=== PATIENT | female | born 1970 | race Caucasian/White ===

== ENCOUNTER 2020-07-09 08:02 | Outpatient (CLI) | payer OTHER, SELFPAY ==
--- NOTE | 2020-07-09 08:35 | ECG_ITS ---
Measurements Intervals [place] Rate: 76 P: 37 RI: 143 QRS: 55 QRSD: 102 T: 16 QT: 354 QTc: 400 Interpretive Statements SINUS RHYTHM DELAYED PRECORDIAL R/S TRANSITION BORDERLINE T WAVE ABNORMALITY- INFERIOR LEADS BASELINE ARTIFACT- I, II, III, AVR, AVL, AVF BORDERLINE ECG Electronically Signed On 07-09-2020 8:59:21 CDT by Alvin Aden D.O.
[2020-07-09 08:56] LABS: Basophils Absolute Auto 0.1 K/mm3 (0.0-0.1); Basophils Percent Auto 0.6 % (0.2-1.2); Eosinophils Absolute Auto 0.2 K/mm3 (0-0.3); Eosinophils Percent Auto 2.5 % (0-4.4); Hematocrit 42.6 % (37.0-47.0); Hemoglobin 13.8 g/dL (12.0-15.0); Immature Granulocyte Absolute 0.02 K/mm3 (0.00-0.031); Immature Granulocyte Percent A 0.3 % (0-0.5); Lymphocytes Absolute Auto 2.43 K/mm3 (0.9-3.2); Lymphocytes Percent Auto 30.5 % (18.3-44.2); Mean Corpuscular HGB Conc 32.4 g/dl (32-36); Mean Corpuscular Hemoglobin 28.5 pg (26-34); Monocytes Absolute Auto 0.6 K/mm3 (0.1-0.6); Monocytes Percent Auto 7.3 % (2.6-8.5); Neutrophils Absolute Auto 4.7 K/mm3 (1.3-6.7); Neutrophils Percent Auto 58.8 % (45.5-73.1); Platelet Count Result 393 k/mm3 (150-375); Red Blood Count 4.84 M/mm3 (4.2-5.4); Red Cell Distribution Width 13.3 % (11.5-14.5)
[2020-07-09 09:08] LABS: Partial Thromboplastin Time 27.8 SECONDS (22.3-36.8)
[2020-07-09 09:11] LABS: Alanine Aminotransferase 20 U/L (4-35); Albumin Level 4.4 g/dL (3.5-5.1); Alkaline Phosphatase 102 U/L (38-126); Anion Gap 5 mmol/L (8-16); Aspartate Amino Transferase 24 U/L (14-36); Bilirubin,Total 0.3 mg/dL (0.2-1.3); Blood Urea Nitrogen 16 mg/dL (7-17); Calcium 8.9 mg/dL (8.4-10.2); Carbon Dioxide 30 mmol/L (22-30); Chloride 107 mmol/L (98-107); Estimated Glomerular Filt Rate > 60; Glucose 118 mg/dL (65-105); Potassium 3.8 mmol/L (3.4-5.0); Sodium 142 mmol/L (137-145)
[2020-07-09 09:23] LABS: INR 0.9; Prothrombin Time 13.2 Seconds (11.1-14.7)
== END 2020-07-09 08:03 | disposition home or self-care (01) ==
LOC: ANHSURGERY 08:04
PROVIDERS: PCP Family Medicine; Visit Provider Urology
DX: Z01.818 Encounter for other preprocedural examination (principal); N39.3 Stress incontinence (female) (male); N81.9 Female genital prolapse, unspecified
CPT/HCPCS: 36415; 80053; 85025; 85610; 85730; 86850; 86900; 86901; 87086; 87088; 93005

== ENCOUNTER → 2020-07-18 00:53 | Outpatient (CLI) | payer OTHER, SELFPAY ==
[2020-07-18 19:49] LABS: SARS-CoV-2 RNA PCR Negative
== END ==
PROVIDERS: PCP Nurse Practitioner Family; Visit Provider Urology
DX: Z01.812 Encounter for preprocedural laboratory examination (principal); Z20.822 Contact with and (suspected) exposure to COVID-19
CPT/HCPCS: C9803; U0003; U0005

== ENCOUNTER 2020-07-21 01:52 | Day surgery (SDC) | payer OTHER, SELFPAY ==
[2020-07-09 07:50] VITALS: BP 120/62; PULSE 82; RESP 18; TEMP 36.8; O2SAT 99
[2020-07-09 08:15] VITALS: BMI 34.6
--- NOTE | 2020-07-12 11:43 | PM.IMHP ---
H&P: HPI History of Present Illness Date/Time: 07/12/20 11:43 a 49-year-old with post hysterectomy vaginal vault prolapse as well as stress incontinence which she states has improved as the prolapse has worsened. She has had a stress incontinence procedure in the past. Chief Complaint: pelvic organ prolapse, stress incontinence Review of Systems Review of Systems: All systems reviewed & are unremarkable except as noted in HPI and below PMFSH Past Medical History Medical History Headache, migraine, intractable Irritable bowel syndrome with diarrhea Ulcerative colitis (~2009) Surgical History Surgical History H/O: hysterectomy (~03/2018) History of bladder suspension procedure (~03/2018) History of foot surgery 2012 Family History Family History Mother Hypertension Family history of elevated blood lipids Other H/O: hysterectomy Social History Social History Smoking status: Never smoker Second hand tobacco smoke exposure: No Alcohol intake: current Substance use: never Substance use type: does not use Gender identity (if verbalized by the patient): Female Spiritual care concerns: No Meds Home Medications and Allergies Home Medications Medication Instructions Recorded Confirmed Type famotidine 20 mg PO .at bedtime PRN 07/09/20 07/09/20 History Allergies Allergy/AdvReac Type Severity Reaction Status Date / Time Sulfa (Sulfonamide Allergy Mild Rash Verified 07/09/20 08:12 Antibiotics) Exam Const: General: cooperative HENMT: Head: normal to inspection Eyes: General: appearance normal, both eyes and all related structures Resp: Effort & Inspection: normal respiratory effort and able to speak in complete sentences GI: Inspection: normal to inspection : Bimanual Exam- Adnexa, other: cystocele ( Plus three) and No apex supported ( +1) Back/Spine/Pelvis: Back: no CVA tenderness Skin: General skin exam: normal color Neuro: General: patient oriented x3 Assessment and Plan Assessment and plan (1) Prolapse of vaginal vault after hysterectomy: Code(s): N99.3 - Prolapse of vaginal vault after hysterectomy Status: Acute Assessment and Plan: robotic sacral colpopexy (2) ZACH (stress urinary incontinence, female): Code(s): N39.3 - Stress incontinence (female) (male) Status: Acute Assessment and Plan: urethral sling
[2020-07-21] VITALS (11 sets, daily range): BP systolic 114–135; BP diastolic 49–75; PULSE 58–115; RESP 12–20; TEMP 36.4–36.8; O2SAT 96–100
--- NOTE | 2020-07-21 07:17 | WPDHPUPDATE1 ---
History and Physical Update Update Date/Time: 07/21/20 07:17 History and Physical has been reviewed, including an updated exam of the patient. There are NO changes in the patient's condition. Risks, benefits, and alternatives have been discussed and questions answered. Patient agrees to proceed with procedure.
[2020-07-21] MEDS: LACTATED RINGERS 1,000 ML 30 ML IV CONT ×2 (09:50→14:17)
--- NOTE | 2020-07-21 09:59 | WPDANESEPPF ---
Anes - Initial Pre Proc Eval Procedure: Operation Date: 07/21/20 11:15 Proposed Procedures p Robotic Sacrocolpopexy - Radu Gallegos MD s Urethral Sling - Radu Gallegos MD Date/Time: 07/21/20 09:59 Surgeon: Radu Gallegos MD Pre Op Diagnosis: Stress Incontinence,Vaginal Vault Prolapse Patient Data Age: 49 Gender: F Height: 5 ft 6 in Weight: 97.3 kg Last Vital Signs Temp 36.4 C 07/21/20 09:41 Pulse 79 07/21/20 09:41 Resp 20 07/21/20 09:41 BP 127/68 07/21/20 09:41 Pulse Ox 100 07/21/20 09:41 Allergies Allergy/AdvReac Type Severity Reaction Status Date / Time Sulfa (Sulfonamide Allergy Mild Rash Verified 07/09/20 08:12 Antibiotics) Home Medications Medication Instructions Recorded Confirmed Type famotidine 20 mg PO .at bedtime PRN 07/09/20 07/21/20 History Patient hx anesthesia problems: none Family hx anesthesia problems: none PMFSH Past Medical History Medical History (Updated 07/21/20 @ 09:59 by Donn Cruz MD) Headache, migraine, intractable Irritable bowel syndrome with diarrhea Obesity Ulcerative colitis (~2009) Surgical History Surgical History H/O: hysterectomy (~03/2018) History of bladder suspension procedure (~03/2018) History of foot surgery 2012 Family History Family History Mother Hypertension Family history of elevated blood lipids Other H/O: hysterectomy Social History Social History Smoking status: Never smoker Second hand tobacco smoke exposure: No Alcohol intake: current Alcohol use details: STATES DRINKS VERY RARELY, 2/MONTH IF THAT Substance use: never Substance use type: does not use Living arrangements: with family Gender identity (if verbalized by the patient): Female Spiritual care concerns: No Anes - Eval Final PreProcedure Day of Procedure 07/21/20 09:59 Patient weight: obese Heart: regular rate and rhythm Lungs: clear to auscultation Airway: Mallampati scale class II Neurological: alert and oriented Last oral intake: >/= 8 hours ASA classification: II Anesthetic plan: proceed Anesthesia type and monitoring: general ETT and standard monitoring Informed Consent: The patient's anesthetic plan and its attendant risks and benefits were discussed with the patient/family/POA. Questions were solicited and answers provided to the satisfaction of the patient/family/POA.
[2020-07-21] MEDS: ceFAZolin 2 GM/D5W 50 ML 2 GM/50 ML BAG IVPB (11:43)
[2020-07-21] MEDS: BUPIVACAINE/EPINEPHRINE 0.25% 50 ML VIAL INFILTRATE (12:44)
--- NOTE | 2020-07-21 14:19 | PM.PROC ---
Procedure Note - Detailed Date of procedure: 07/21/20 Pre-op diagnosis: Stress Incontinence,Vaginal Vault Prolapse Vaginal vault prolapse Female perineal laxity Stress urinary incontinence Post-op diagnosis: same Procedure performed: Robotic assisted laparoscopic sacral colpopexy Perineoplasty Mid urethral sling Cystoscopy Description of procedure: She understood the risks of bleeding, infection, damage to surrounding organs, bowel injury, bowel obstruction, recurrence of prolapse, persistent or recurrent stress incontinence, mesh related complications including exposure and extrusion, diskitis, postoperative voiding dysfunction including incontinence and retention, hip and leg pain, dyspareunia, and she agrees to proceed. She was correctly identified and informed consent was obtained. She was brought to the operating room. She was given general anesthesia. She was placed in the dorsal lithotomy position. All pressure points were padded. She was given appropriate perioperative antibiotics. Time-out performed. I anesthetized the skin 3 fingerbreadths cephalad to the umbilicus. I incised the skin. I dissected down to locate the fascia. I grasped the fascia with Barbara clamps. I entered the fascia sharply. I placed Vicryl sutures for later fascial closure. I placed a midline trocar. Under direct vision 2 additional trocars were placed on the right and left upper quadrant. She was placed in steep Trendelenburg and the robot was docked. I then sat at the console. With the Sizer in the vagina I created a plane on the anterior and posterior vaginal wall. This was done for several cm taking great care not to injure the vagina, bladder, or rectum. I introduced the mesh into the abdomen. I sewed the anterior leaflet of mesh on the anterior vaginal wall and posterior leaf of the mesh on the posterior vaginal wall with several [place] sutures taking great care not to go through and through. I then reflected the colon laterally. I opened up the posterior peritoneum over the sacral promontory. I carried this into the cul-de-sac. I kept the ureters lateral. I freed up the edges. I located the anterior longitudinal ligament of the sacrum. I tensioned the mesh appropriately. I did a vaginal exam to ensure prolapse reduction without undue tension. I then sewed the proximal leaflet of mesh onto the ligament with 3 sutures of 2 0 [place]-Man[place]. Next the mass was meticulously retroperitonealized with a running 2 0 Monocryl suture. I allowed the colon to go back into its normal anatomic location. There is no signs of any impingement or stricturing. The abdomen was exited. Fascia was closed. Skin was closed with Monocryl and glue. She was repositioned and prepped for perineal surgery. She had quite a bit of perineal laxity. I tara out a adrien-shaped area of skin in the perineum. I anesthetized the skin. I removed this area of skin sharply. I then performed a perineoplasty with 0 Vicryl suture. I used a 2 0 Vicryl suture to close mucosa to mucosa. She had excellent perineal support without undue narrowing of the vagina. I turned my attention towards the urethral sling. I marked out the thigh incisions. I anesthetize the skin and made those incisions. I anesthetized the anterior vaginal wall over the mid urethra. I made a 1 cm incision. I dissected out laterally taking great care not to injure the urethra or the vaginal wall. I next passed the helical trocars to 1st on the left and then on the right. This was done from the thigh incision towards the vaginal incision. The sling was connected to the trocars and brought out through the thigh incision. I tensioned the sling appropriately. I cut and removed the plastic sheaths. I then closed the incision with 2 0 Vicryl. I then performed cystoscopy. The bladder is examined. There was no tumors, stones, foreign bodies, surgical artifact. Both ureters were seen to excrete clear yellow urine. There is no surgi
[2020-07-21] MEDS: fentaNYL CITRATE INJ (*CRX) 100 MCG/2 ML VIAL 25 MCG IV PUSH ×2 (14:43→14:54)
[2020-07-21] MEDS: ONDANSETRON INJ 4 MG/2 ML VIAL IV PUSH ×2 (15:10→20:20)
--- NOTE | 2020-07-21 16:14 | PC.NURSE ---
This patient, Felisha Peterson, was received from PACU on 07/21/20 at 1614. Patient/family oriented to unit policies and routines
[2020-07-21 16:41] LABS: HIV 1/2 Ab P24 Ag Result Negative (Negative); Hepatitis B Surface Anti Res Negative; Hepatitis C Virus Antibody Negative (Negative)
[2020-07-21] MEDS: KCL 20 MEQ/D5/0.45% SOD CHL 1,000 ML 100 ML IV CONT (16:41)
[2020-07-21] MEDS: KETOROLAC 15 MG/ML VIAL (*BKC) IV PUSH (16:46)
[2020-07-22 00:05] VITALS: BP 114/69; PULSE 99; RESP 16; TEMP 37.4; O2SAT 96
[2020-07-22] MEDS: KETOROLAC 15 MG/ML VIAL (*BKC) IV PUSH ×2 (00:09→05:47)
[2020-07-22 05:45] VITALS: BP 110/58; PULSE 80; RESP 16; TEMP 37.2; O2SAT 95
--- NOTE | 2020-07-22 07:32 | WPDANESPN ---
Anes - Prog Note Post-Op Date/Time: 07/22/20 07:32 Cardiovascular status: normal Respiratory status: normal Airway patency: baseline Mental status: baseline Post-Op hydration status: normal Vital Signs: Last Vital Signs Temp 37.2 C 07/22/20 05:45 Pulse 80 07/22/20 05:45 Resp 16 07/22/20 05:45 BP 110/58 L 07/22/20 05:45 Pulse Ox 95 07/22/20 05:45 Pain Score (VAS): 04/20 I/O: Intake & Output 07/21/20 07/21/20 07/22/20 15:59 23:59 07:59 Intake Total 50 450 200 Output Total 122 459 0447 Balance -631 -50 -2620 07/21/20 15:03 Hep Bs Antibody Negative Hepatitis C Ab Screen Negative HIV 1&2 Ab/P24 Ag 4thGn Negative Post-procedural complaints: nausea Patient Feedback: Patient satisfied with anesthetic care.
[2020-07-22 08:35] VITALS: BP 98/53; PULSE 92; RESP 16; TEMP 36.7; O2SAT 98
[2020-07-22] MEDS: ENOXAPARIN 30 MG/0.3 ML SYRINGE SUB-Q (10:01)
[2020-07-22] MEDS: DOCUSATE SODIUM 100 MG CAPSULE PO (10:01)
[2020-07-22] MEDS: HYDROcodone/acetaminophen (*CRX) 5-325 MG TABLET 1 TAB PO (10:02)
[2020-07-22] MEDS: ceFAZolin SODIUM 1 GM VIAL IM (12:43)
--- NOTE | 2020-07-22 16:14 | WPDUROPN2 ---
Progress Note: A&P Assessment and Plan (1) ZACH (stress urinary incontinence, female): Code(s): N39.3 - Stress incontinence (female) (male) Status: Acute Assessment and Plan: Ok to discharge home, follow up as planned. 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 Review of Systems Cardiovascular: Cardiovascular: Denies chest pain Respiratory: Respiratory: Reports no additional respiratory complaints Gastrointestinal: Gastrointestinal: Denies abdominal pain, Denies nausea and Denies vomiting Genitourinary: Genitourinary: Denies hematuria, Denies dysuria and Denies pelvic pain Exam Resp: Effort & Inspection: normal respiratory effort Cardio: Rate: regular rate GI: GI Palp: Yes Soft to palpation and Yes Tenderness to palpation present (GI) (incisions only, no edema or drainage, incisions are well approximated) : General: Yes no CVA tenderness Extrem: General: no edema Objective Data Vital Signs Vital Signs: Vital Signs - 24 hr 07/21/20 16:15 07/21/20 20:20 07/22/20 00:05 Temperature 97.8 F 98.3 F 99.4 F Pulse Rate 80 115 H 99 Respiratory Rate 18 16 16 Blood Pressure 135/73 126/60 114/69 Pulse Oximetry 97 96 96 07/22/20 05:45 07/22/20 08:35 Temperature 99.0 F 98.1 F Pulse Rate 80 92 Respiratory Rate 16 16 Blood Pressure 110/58 L 98/53 L Pulse Oximetry 95 98 Intake/Output Intake/Output: Intake & Output 07/19/20 07/20/20 07/21/20 07/22/20 23:59 23:59 23:59 23:59 Intake Total 500 250 Output Total 900 2250 Balance -400 -2000 Labs Labs: Laboratory Results - last 24 hr 07/21/20 15:03 Hep Bs Antibody Negative Hepatitis C Ab Screen Negative HIV 1&2 Ab/P24 Ag 4thGn Negative
== END 2020-07-22 12:52 | disposition home or self-care (01) ==
LOC: ANHSURGERY 14:24 → ANHOB2 16:15
PROVIDERS: PCP Nurse Practitioner Family; Visit Provider Urology
PROC: (CPT 57425; principal; 2020-07-21 11:15)
PROC: (CPT 57288; 2020-07-21 11:15)
DX: N39.3 Stress incontinence (female) (male) (principal); N99.3 Prolapse of vaginal vault after hysterectomy; K58.0 Irritable bowel syndrome with diarrhea; L57.4 Cutis laxa senilis; E66.9 Obesity, unspecified; Z68.34 Body mass index [BMI] 34.0-34.9, adult; Z11.4 Encounter for screening for human immunodeficiency virus [HIV]
CPT/HCPCS: 57288; 57425; S2900; 36415; 80053; 85025; 85610; 85730; 86703; 86706; 86803; 86850; 86900; 86901; 87086; 87088; 93005; 99199; A9270; C1771; C1781; C9290; C9803; G0432; J0360; J0690; J1100; J1170; J1650; J1885; J2250; J2405; J2704; J2710; J3010; J3480; J7030; J7120; U0003; U0005

== ENCOUNTER 2022-12-22 09:11 | Outpatient (CLI) | payer OTHER, SELFPAY ==
--- NOTE | 2022-12-22 09:22 | EST_ITS ---
Patient Info Name: Felisha Peterson Age: 52 years : 1970 Gender: Female Ht: 65 in Wt: 213 lbs BSA: 2.15 m2 HR: 76 bpm BP: 140 / 66 mmHg Exam Date: 12/22/2022 9:37 AM Exam Location: [facility] Stress Patient Status: Outpatient Admit Date: 12/22/2022 Staff Ordering Physician: Roma Arreola APRN Attending Provider: Roma Arreola APRN Exercise Technologist: Nisa Vivar [facility] Exercise Physician: Alvin Aden DO Exam Type: CA stress test treadmill Study Info A treadmill exercise stress test was performed. Summary 1. 1. Negative Shailesh exercise stress test for ischemic ST changes by ECG criteria. 2. 2. Reduced functional capacity, achieving 7 METs of workload. 3. 3. Appropriate HR response to exercise. 4. 4. Appropriate HR recovery at 1 minute post exercise. 5. 5. No imaging with stress testing. 6. 6. Patient informed of the above results. Protocol: Shailesh Stress ECG Details Stage: REST Duration (min): 1 min : 36 sec Speed (mph): 0.0 Grade (%): 0 HR (bpm): 70 SBP (mmHg): 140 DBP (mmHg): 66 METS: --- Stage: REST Duration (min): 8 min : 53 sec Speed (mph): 0.0 Grade (%): 0 HR (bpm): 92 SBP (mmHg): 140 DBP (mmHg): 66 METS: --- Stage: STAGE 1 Duration (min): 1 min : 0 sec Speed (mph): 1.7 Grade (%): 10 HR (bpm): 118 SBP (mmHg): 140 DBP (mmHg): 66 METS: --- Stage: STAGE 1 Duration (min): 2 min : 0 sec Speed (mph): 1.7 Grade (%): 10 HR (bpm): 137 SBP (mmHg): 140 DBP (mmHg): 66 METS: --- Stage: STAGE 1 Duration (min): 3 min : 0 sec Speed (mph): 1.7 Grade (%): 10 HR (bpm): 143 SBP (mmHg): 140 DBP (mmHg): 66 METS: --- Stage: STAGE 2 Duration (min): 1 min : 0 sec Speed (mph): 2.5 Grade (%): 12 HR (bpm): 147 SBP (mmHg): 140 DBP (mmHg): 66 METS: --- Stage: STAGE 2 Duration (min): 2 min : 0 sec Speed (mph): 2.5 Grade (%): 12 HR (bpm): 153 SBP (mmHg): 164 DBP (mmHg): 56 METS: --- Stage: STAGE 2 Duration (min): 2 min : 0 sec Speed (mph): 2.5 Grade (%): 12 HR (bpm): 153 SBP (mmHg): 164 DBP (mmHg): 56 METS: --- Stage: RECOVERY Duration (min): 0 min : 59 sec Speed (mph): 0.0 Grade (%): 0 HR (bpm): 120 SBP (mmHg): 164 DBP (mmHg): 56 METS: --- Stage: RECOVERY Duration (min): 1 min : 59 sec Speed (mph): 0.0 Grade (%): 0 HR (bpm): 87 SBP (mmHg): 164 DBP (mmHg): 56 METS: --- Stage: RECOVERY Duration (min): 2 min : 59 sec Speed (mph): 0.0 Grade (%): 0 HR (bpm): 75 SBP (mmHg): 164 DBP (mmHg): 56 METS: --- Stage: RECOVERY Duration (min): 3 min : 21 sec Speed (mph): 0.0 Grade (%): 0 HR (bpm): 76 SBP (mmHg): 261 DBP (mmHg): 53 METS: --- Rest HR: 92 bpm Peak HR: 154 bpm Rest Sys BP: 140 mmHg Peak Sys BP: 186 mmHg Max Pred HR: 167 bpm % Max Pred HR: 92 % Target HR: 142 bpm Max RPP: 28,644 bpm*mmHg Corbett Score: 0 Termination Reason: Reached target
== END 2022-12-22 09:12 | disposition home or self-care (01) ==
PROVIDERS: PCP Nurse Practitioner Family; Visit Provider Nurse Practitioner Family
DX: R00.0 Tachycardia, unspecified (principal)
CPT/HCPCS: 93017

== ENCOUNTER 2023-03-28 08:38 | Outpatient (CLI) | payer OTHER, SELFPAY ==
--- NOTE | ~2023-03-28 | US_ITS ---
Duplex Sonography of the left extremity: Indication: Swelling Findings: Sagittal and transverse B-mode images as well as color-flow imaging were performed on the l eft femoral and popliteal veins. B-mode examination was done without and with compression in the tra nsverse plane. There is good visualization of the common femoral, proximal profunda femoral, superfi cial femoral, greater saphenous, and popliteal veins. Normal flow was seen on color-flow imaging. No rmal compressibility was demonstrated. Visualized calf veins are also patent. Impression: No evidence of deep vein thrombosis involving the left lower extremity. Reviewed, dictated and finalized at location M. ESTATE OFFICE MANAGER Impression: No evidence of deep vein thrombosis involving the left lower extremity.
== END 2023-03-28 08:39 | disposition home or self-care (01) ==
PROVIDERS: PCP Nurse Practitioner Family; Visit Provider Internal Medicine Hematology & Oncology
DX: R60.0 Localized edema (principal)
CPT/HCPCS: 93971

== ENCOUNTER 2023-12-29 12:19 | Outpatient (CLI) | payer OTHER, SELFPAY ==
--- NOTE | ~2023-12-29 | MM_ITS ---
EXAMINATION: MM screening lillian BI w keith HISTORY: Screening mammogram TECHNIQUE: Craniocaudal and mediolateral oblique 3-D tomosynthesis images were obtained and synthetic 2-D images were generated. CAD analysis was submitted and interpreted. COMPARISON: 12/06/2014 BREAST PARENCHYMAL COMPOSITION:Not Dense. The breasts are almost entirely fatty FINDINGS: No suspicious mass, calcification, or architectural distortion are identified in either joe ast to suggest malignancy. There has been no suspicious interval change. IMPRESSION: No mammographic evidence of malignancy. Recommend routine screening mammography in one year. BI-RADS Category 1: Negative Reviewed, dictated and finalized at location .
== END 2023-12-29 12:20 | disposition home or self-care (01) ==
LOC: CHSIMG 12:21
PROVIDERS: PCP Family Medicine; Visit Provider Nurse Practitioner Family
DX: Z12.31 Encounter for screening mammogram for malignant neoplasm of breast (principal)
CPT/HCPCS: 77063; 77067

== ENCOUNTER 2024-05-11 02:08 | Day surgery (SDC) | payer OTHER, SELFPAY ==
[2024-05-03 09:21] VITALS: BMI 34.4
--- OUTSIDE RECORDS SUMMARY | 2024-05-11 02:11 | XMS_ITS | Patient Health Summary ---
Author Organization [facility] Address [address] [address] Care Team Providers Care Thermodynamics Professor Name Role Phone Kishore Painting MD Primary Care Provider [phone] Note from [facility],non-owned Affiliates and Associated Physician Practices is amultiple site organization consisting of ambulatory clinics and hospital sitesin [place], [place], [place] and [place]. This disclosure is being madepursuant to the Care Everywhere program and may not contain all information available regarding this patient. Last updated 17.[facility] Allergies * Sulfa Drugs(Rash) -Medium Criticality Medications Be aware that medications may not be up to date on this document. Always verify current medications with the patient. 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 Social History Tobacco Use Types Packs/Day Years Used Date Smoking Tobacco: Never Smokeless Tobacco: Never Sex and Gender Information Value Date Recorded Sex Assigned at Not on file Gender Identity Not on file Sexual Orientation Not on file Last Filed Vital Signs Vital Sign Reading Time Taken Comments Blood Pressure 114/62 03/31/2019 12:45 PM LAMINATION SPINNER Pulse 83 03/31/2019 12:45 PM LAMINATION SPINNER Temperature 36.8 ??C (98.2 ??F) 03/31/2019 12:[address] Respiratory Rate 16 03/31/2019 12:45 PM LAMINATION SPINNER Oxygen Saturation 97% 03/31/2019 12:45 PM LAMINATION SPINNER Inhaled Oxygen Concentration - - Weight 95.3 kg (210 lb) 03/31/2019 12:45 PM LAMINATION SPINNER Height 170.2 cm (5' 7 ) 03/31/2019 12:45 PM LAMINATION SPINNER Body Mass Index 32.89 03/31/2019 12:45 PM LAMINATION SPINNER Procedures * CULTURE URINE(Performed 03/31/2019) Performed for Acute cystitis with hematuria * URINALYSIS AUTO - POINT OF CARE (AMB) STL(Performed 03/31/2019) Performed for Acute cystitis with hematuria * STREP A SCREEN - POINT OF CARE (AMB) STL(Performed 07/07/2017) Performed for Nasopharyngitis acute * INFLUENZA A+B - POINT OF CARE (AMB)(Performed 07/07/2017) Performed for Nasopharyngitis acute Results * CULTURE URINE (03/31/2019 1:12 PM LAMINATION SPINNER) [facility] Culture STEFANO Comment: ??CULTURE, URINE, ROUTINE ?Micro Number: ?[id number] ??Test Status: ? Final ??Specimen Source: ?? URINE CLEAN ??Specimen Quality: ??Adequate ??Result: ?Three or more organisms present, each greater ? than 10,000 CFU/mL. May represent normal shalini ? contamination from external genitalia. No further ? testing is required. Test Performed at: [facility] ??[id number] DARIAN QUAN MD Urine URINE SPECIMEN OBTAINED BY CLEAN CATCH PROCEDURE / Unknown 03/31/2019 1:12 PM LAMINATION SPINNER 03/31/2019 10:18 PM LAMINATION SPINNER Kourtney Tang APRN-SUPERVISOR POWER REACTOR LAB - MICRO BIOLOGY ORDERABLES [address] [id number] * URINALYSIS AUTO - POINT OF CARE (AMB) STL (03/31/2019 12:57 PM LAMINATION SPINNER) Pathologist [facility] Clarity UA POCT clear Color UA POCT yellow Leukocyte UA trace Negative Nitrite UA POCT neg Negative Urobilinogen UA 0.2 0.1 - 1.0 Protein UA POCT trace Negative pH UA 5.0 5.0 - 8.0 pH units Blood UA trace Negative Specific [place] UA POCT 1.015 1.002 - 1.030 Ketone UA negative Negative Bilirubin UA POCT negative Negative Glucose UA negative Negative Expiration Date 06/05/19 Lot # [id number] Verified Yes Yes Urine URINE / Unknown 03/31/2019 1 2:57 PM LAMINATION SPINNER Kourtney Tang VICE PRESIDENT SUPPLY CHAIN-SUPERVISOR POWER REACTOR LAB - POINT OF CARE ORDERABLES * STREP A SCREEN (07/07/2017 11:19 AM CDT) [facility] Strep A Rapid POCT Negative Negative Strep A Internal Control Present Lot # [id number] Expiration Date 12/30/2018 Throat ENTIRE THROAT (SURFACE REGION OF NECK) / Unknown 07/07/2017 11:19 AM CDT Amaris Monsivais VICE PRESIDENT SUPPLY CHAIN-SUPERVISOR POWER REACTOR LAB - POIN T OF CARE ORDERABLES * INFLUENZA A+B - POINT OF CARE (AMB) (07/07/2017 11:19 AM CDT) [facility] Influenza A Antigen Rapid Negative Negative Influenza B Antigen Rapid Negative Negative Influenza Internal Control present NEGATIVE - POSITIVE Influenza Lot Number [id number] Influenza Expiration Date 05/17/2019 Other NASOPHARYNGEAL SWAB / Unknown 07/07/2017 11:19 AM CDT Amaris Selbyeal VICE PRESIDENT SUPPLY CHAIN-SUPERVISOR POWER REACTOR LAB - POIN T OF CARE ORDERABLES Care Teams Thermodynamics Professor Relationship Specialty Start Date End Date Kishore Painting MD PCP - General 04/07/18
--- OUTSIDE RECORDS SUMMARY | 2024-05-11 02:11 | XMS_ITS | Referral Summary ---
Author Organization [facility] Address [address] [place] [address] Care Team Providers Care Test Cell Technician Name Role Phone Kishore Painting MD Primary Care Provider [phone] Source Comments [facility],non-owned Affiliates and Associated Physician Practices is amultiple site organization consisting of ambulatory clinics and hospital sitesin [place], [place], [place] and [place]. This disclosure is being madepursuant to the Care Everywhere program and may not contain all information available regarding this patient. Last updated 17.[facility] Allergies Active Allergy Reactions Criticality Noted Date Comments Sulfa Drugs Rash Medium 03/05/2015 Medications Be aware that medications may not [...] Comments Blood Pressure 114/62 03/31/2019 12:45 PM CASING CREW PUSHER Pulse 83 03/31/2019 12:45 PM CASING CREW PUSHER Temperature 36.8 ??C (98.2 ??F) 03/31/2019 12:[address] Respiratory Rate 16 03/31/2019 12:45 PM CASING CREW PUSHER Oxygen Saturation 97% 03/31/2019 12:45 PM CASING CREW PUSHER Inhaled Oxygen Concentration - - Weight 95.3 kg (210 lb) 03/31/2019 12:45 PM CASING CREW PUSHER Height 170.2 cm (5' 7 ) 03/31/2019 12:45 PM CASING CREW PUSHER Body Mass Index 32.89 03/31/2019 12:45 PM CASING CREW PUSHER Plan of Treatment Not on file Care Teams Test Cell Technician Relationship Specialty Start Date End Date Kishore Painting MD PCP - General 04/07/18
--- OUTSIDE RECORDS SUMMARY | 2024-05-11 02:11 | XMS_ITS | Continuity of Care Document ---
Author Organization [facility] Address [address] [place] [address] Phone Care Team Providers Care Production Worker Name Role Phone Adonay Arreola DPM Unavailable Unavailable Allergies, Adverse Reactions, Alerts Substance Reaction Status Criticality sulfanilamide Rash Active No Information Medications Medication Instructions Dosage Effective Dates (start - stop) Status Comments CYCLOBENZAPRINE HCL (unknown strength) Not Available - Active DICLOFENAC SODIUM (unknown strength) Not Available - Active MEDROL (unknown strength) Not Available - Active Procedures Procedure Date POSTOP FOLLOW-UP VISIT POSTOP FOLLOW-UP VISIT POSTOP FOLLOW-UP VISIT POSTOP FOLLOW-UP VISIT OFFICE/OUTPATIENT VISIT NEW Advance Directives Directive Yes / No Effective Date File Name Resuscitation Not Answered N/A N/A Life Support Not Answered N/A N/A Intubation Not Answered N/A N/A Antibiotics Not Answered N/A N/A IV Fluid Support Not Answered N/A N/A Tube Feed Not Answered N/A N/A Other Directive N/A N/A WARNING:The information contained in this section is historical and is provided for information only and does not constitute a legal document or any assurance that the information is still accurate. Please verify the information with the donnelly of the legal document before using it for clinical purposes. Encounters Encounter Description Practice Location Reason(s) For Visit Diagnoses Date Provider Providers Copied on Encounter [facility] , [address], [place], [address], [place] tel:[phone] [facility] right foot (chief complaint) Lesion of plantar nerve Maxwell Urias. [address], [place], [place], [id number]. tel:[phone] Referring Provider: Saman Flynn, [facility], [place], [address]. tel:[phone] [facility] , [address], [place], [address], [place] tel:[phone] [facility] right foot (chief complaint) Lesion of plantar nerve Maxwell Urias. [address], [place], [place], [id number]. tel:[phone] Referring Provider: Saman Flynn, [facility] [address], [place], [address]. tel:[phone] [facility] , [address], [place], [address], [place] tel:[phone] [facility] right foot (chief complaint) Lesion of plantar nerve Maxwell Urias. [address], [place], [place], [id number]. tel:[phone] Referring Provider: Saman Flynn, [facility] [address], [place], [address]. tel:[phone] [facility] , [address], [place], [address], [place] tel:[phone] [facility] right foot (chief complaint) Lesion of plantar nerve Maxwell Urias. [address], [place], [place], [id number]. tel:[phone] Referring Provider: Saman Flynn, [facility] [facility] [address], [place], [address]. tel:[phone] [facility] , [address], [place], [address], [place] tel:[phone] [facility] right foot (chief complaint) Lesion of plantar nerve Maxwell Urias. [address], [place], [place], [id number]. tel:[phone] Referring Provider: Diane Rondon[address], [place], [address]. tel:[phone] [facility] , [address], [place], [address], tel:[phone] [facility] right foot (chief complaint) Lesion of plantar nerve Maxwell Urias. [address], [place], [place], [id number]. tel:[phone] Referring Provider: Saman Flynn [address], [place], [address]. tel:[phone] OFFICE/OUTPAT IENT VISIT NEW [facility] , [address], [place], [address], tel:[phone] [facility] right foot pain (chief complaint) Lesion of plantar nerve Maxwell Urias. [address], [place], [place], [id number]. tel:[phone] Referring Provider: Saman Flynn [address], [place], [address]. tel:[phone] Family History Family Member Type Diagnosis Age At Onset No Information Payers Payer name Insurance type Covered alliance party ID Authoriza tion(s) No Information Social History Type Description Quantity Date Captured Comments Alcohol Use Details Unknown Caffeine Use Details Unknown Tobacco Use Status No Information Smoking Status No Information Sex Female Chief Complaint And Reason For Visit From encounter dated '07/02/2013 08:40'. right foot (chief complaint) Reason For Referral Reason For Referral No Information History Of Present Illness Encounter Date Complaint History Of Prese nt Illness No Information Functional Status Date Functional Assessmen t Pain Score 3/10 Instructions Date Instruction Additional Infor mation Activity as tolerated Discussed post op care/precautio ns Ice as needed Resume normal activity Physical activity counseling Rel ated to Dietary Surveillance Counseling Advance activity as tolerated Physical activity counseling Rel ated to Dietary Surveillance Counseling Reviewed medications Activity as tolerated Physical activity counseling Rel ated to Dietary Surveillance Counseling Reviewed medications Activity as tolerated Ice as instructed Advance activity as tolerated Elevate as needed Ice as needed Advance activity as tolerated Discussed wound care Elevate as needed Ice as needed Physical activity counseling Rel ated to Dietary Surveillance Counseling Reviewed medications Activity as tolerated Discussed wound care Discussed post op care/precautio ns Elevate as needed Ice as needed Physical activity counseling Rel ated to Dietary Surveillance Counseling Protective activity Reviewed medications Take new medication as prescribe d Ice as instructed Use compressive wrap Relative rest Weight bearing statu s: weight bear as tolerated Discussed wound care Discussed post op care/precautio ns Ice as instructed Weight bearing statu s: partial weight bearing Ice as needed Elevate as needed Protective activity OTC medication -acetaminophen Physical activity counseling Rel ated to Dietary Surveillance Counseling Dietary Counseling Related to Di etary Surveillance Counseling Physical activity counseling Rel ated to Dietary Surveillance Counseling Weight bearing statu s: full weight bearing Dietary Counseling Related to Di etary Surveillance Counseling Reviewed medications Assessments Type Assessment Date No Information Patient Care Teams Name Effective Dates (start - stop) Status Members No Information
--- OUTSIDE RECORDS SUMMARY | 2024-05-11 02:11 | XMS_ITS | Clinical Summary ---
Author Organization [facility] [address] [facility] l[address] Address [address] [facility] [facility] [place] [address] Care Team Providers Care Tube Puller Name Role Phone Holli Warren NP Primary Care Provider [phone] Allergies Active Allergy Reactions Criticality Noted Date Comments Sulfa (Sulfonamide Antibiotics) Medications atorvastatin (LIPITOR) 10 mg tablet Take 1 tablet (10 mg total) by mouth daily Active benzonatate (TESSALON) 100 mg capsuleIndicati ons:Cough Take 1 capsule (100 mg total) by mouth 3 (three) times a day as needed for cough 42 capsule 02/07/2023 Active Active Problems Problem Noted Date Diagnosed Date Contracture of Achilles tendon 12/26/2014 Hammer toe 12/26/2014 Pain of foot 12/18/2014 Dermatofibroma 02/27/2013 Benign neoplastic disease 02/27/2013 Surgical History Surgery Date Site/Laterality Comments BLADDER SUSPENSION 07/21/2020 URETHRAL SLING 07/21/2020 Family History Medical History Relation Name Comments Cancer Father Family history of malignant neoplasm - (Added by TW Conv) Relation Name Status Comments Father Social History Tobacco Use Types Packs/Day Years Used Date Smoking Tobacco: Never Smokeless Tobacco: Never Tobacco Cessation:Counseling Given: Not Answered Personal Safety Answer Date Recorded Getting School Help Needed Not on file 06/24 Comments Unknown Sex and Gender Information Value Date Recorded Sex Assigned at Not on file Legal 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 Gender Identity Not on file Sexual Orientation Not on file Obstetrics History Last Filed Vital Signs Vital Sign Reading Time Taken Comments Blood Pressure 122/76 02/07/2023 11:34 AM CDT Pulse 78 02/07/2023 11:34 AM CDT Temperature 36.5 ??C (97.7 ??F) 02/07/2023 11:34 AM C DT Respiratory Rate 19 02/07/2023 11:34 AM CDT Oxygen Saturation 99% 02/07/2023 11:34 AM CDT Inhaled Oxygen Concentration - - Weight 98.9 kg (218 lb) 02/07/2023 11:34 AM CDT Height 165.1 cm (5' 5 ) 02/07/2023 11:34 AM CDT Body Mass Index 36.28 02/07/2023 11:34 AM CDT Plan of Treatment Health Maintenance Due Date Last Done Comments Breast Cancer Screening-Mammogram 1970 Cervical Cancer Screening 1969 Colon Cancer Screening-Colonoscopy 1969 Depression Screening 1969 Hepatitis C Screening 1969 Hepatitis B Screening 11/01/1987 Regular Well Visit/Exam 18-64 11/01/1987 Zoster Vaccine (1 of 2) 11/01/2019 Covid-19 Vaccine (3 - season) 2023 07/27/2020, 07/06/2020 Influenza Vaccine (#1) 2023 , 03/10/2019, 02/09/2017, Additional history exists DTaP/Tdap/Td Vaccine (3 - Td or Tdap) 04/11/2027 04/11/2017, 03/24/2017 Pneumococcal vaccine <65 Aged Out No longer eligible based on patient's age to complete this topic Insurance [facility] CHO[facility] PLUS [facility] PL[facility] Care Teams Tube Puller Relationship Specialty Start Date End Date Holli Warren NP PCP - General Family Medicine 11/19/21
--- OUTSIDE RECORDS SUMMARY | 2024-05-11 02:11 | XMS_ITS | Clinical Summary ---
Author Organization [facility] Address [address] [place] [address] Care Team Providers Care Resident Care Aide Name Role Phone Kishore Painting MD Primary Care Provider [phone] Source Comments [facility],non-owned Affiliates and Associated Physician Practices is amultiple site organization consisting of ambulatory clinics and hospital sitesin [place], [place], [place] and [place]. This disclosure is being madepursuant to the Care Everywhere program and may not contain all information available regarding this patient. Last updated 17.[facility] Allergies Active Allergy Reactions Criticality Noted Date Comments Sulfa Drugs Rash Medium 03/05/2015 Medications Be aware that medications may not be up to date on this document. Always verify current medications with the patient. 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 Family History Relation Name Status Comments Father Alive Mother Alive Social History Tobacco Use Types Packs/Day Years Used Date Smoking Tobacco: Never Smokeless Tobacco: Never Sex and Gender Information Value Date Recorded Sex Assigned at Not on file Gender Identity Not on file Sexual Orientation Not on file Last Filed Vital Signs Vital Sign Reading Time Taken Comments Blood Pressure 114/62 03/31/2019 12:45 PM PLASTIC FINISHER Pulse 83 03/31/2019 12:45 PM PLASTIC FINISHER Temperature 36.8 ??C (98.2 ??F) 03/31/2019 12:[address] Respiratory Rate 16 03/31/2019 12:45 PM PLASTIC FINISHER Oxygen Saturation 97% 03/31/2019 12:45 PM PLASTIC FINISHER Inhaled Oxygen Concentration - - Weight 95.3 kg (210 lb) 03/31/2019 12:45 PM PLASTIC FINISHER Height 170.2 cm (5' 7 ) 03/31/2019 12:45 PM PLASTIC FINISHER Body Mass Index 32.89 03/31/2019 12:45 PM PLASTIC FINISHER Plan of Treatment Health Maintenance Due Date Last Done Comments COLOGUARD (AGES 45-75) - COL ON CA SCREENING 1969 COLON MONITORING 1969 COLONOSCOPY - COLON CA SCREENING 1969 CT COLONOGRAPHY - COLON CA SCREENING 1969 Colorectal Cancer Screening 1969 FIT - COLON CA SCREENING 1969 FLEX SIG - COLON CA SCREENING 1969 LIPID TESTING 1969 MAMMOGRAM 1969 PAP SMEAR 1969 HIV SCREENING 1984 HEPATITIS C SCREENING 10/27/1987 DTAP/TDAP/TD VACCINES (1 - Tdap) 1988 HEPATITIS B VACCINE (1 of 3 - 19+ 3-dose series) 1988 SCREENING FOR DIABETES 03/31/2019 PNEUMOCOCCAL VACCINE 50+ (1 of 1 - PCV) 11/01/2019 ZOSTER VACCINE (1 of 2) 11/01/2019 COVID-19 VACCINE (1 - 2023-2 5 season) 2023 INFLUENZA VACCINE (#1) 2023 DEPRESSION SCREENING 04/11/2024 HIB VACCINE Aged Out No longer eligi ble based on patient's age to complete this topic HPV VACCINE Aged Out No longer eligi ble based on patient's age to complete this topic MENINGOCOCCAL (Group B) VACCINE Aged Out No longer eligible based on patient's age to complete this topic MENINGOCOCCAL VACCINE Aged Out No kristyn dax eligible based on patient's age to complete this topic PNEUMOCOCCAL VACCINE Aged Out No long er eligible based on patient's age to complete this topic Care Teams Resident Care Aide Relationship Specialty Start Date End Date Kishore Painting MD PCP - General 04/07/18
--- OUTSIDE RECORDS SUMMARY | 2024-05-11 02:11 | XMS_ITS | Data Portability ---
Author Organization MD - [facility], Main Office Address [address] [place] [address] Assessment Encounter Date Assessment Date Assessment LastModified by Organization Details LastModified Time 03/23/2023 03/23/2023 HPI: 52-year-old female came in today for evaluation for left knee pain. She has been having some mild symptoms on and off for about a year. Last month it has been little bit worse. She does not recall any injury or trauma. She was doing a lot of activities around the house a month ago while decorating for the holidays. 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 Patient has been taking Advil 400 mg only when the knee is very painful. She also had occasional Tylenol to that. Patient has had no previous surgeries on left knee. Patient has been walking for the last 6 months for exercise and try to work weight loss. Physical exam: 52-year-old female she is 5 ft 5 and 213 lb her BMI is 35.4. She has mild effusion left knee. Range of motion is from 0-140 degrees. She has a mild discomfort with full flexion. Hip range of motion is full without discomfort. Qbup-ll-alhvfuzs tenderness over the mid medial joint line no lateral joint line tenderness. No tenderness over the posterior medial joint line. Mild patellofemoral grind. There is crepitus of the patellofemoral joint with range of motion. Multiple varicose veins in both lower extremities. No edema in either lower extremity. 2+ dorsalis pedis pulse. Impression: 52-year-old female has mild medial compartment osteoarthritis left knee. I discussed with her that there is a possibility she may have torn medial meniscus with activities. At this point she is having no catching locking symptoms today. She predominantly has pain as the day progresses notices some swelling by the end day which with more correlate to arthritis. I discussed treatment options with her as far as the arthritis. She does feel that the [id number]-[id number] Advil works well for her but she does not take it regularly. I recommended that she take it on a more regular basis at this point. I recommended she start taking 600 mg twice a day which is still later does and take this for the next week or 2 to try to get her symptoms in the knee quiet down. Talked about the option of cortisone injection which she declined at this point but will keep in mind her symptoms do not improve or worsen. Weight loss will be beneficial. Her BMI is 35 today and certainly this is going to contribute to her symptoms. If she has continued symptoms that do not improve then the next step would be to obtain an MRI scan for additional evaluation. Again at this point she is going to utilize the Advil daily basis and see if this improves her symptoms to her satisfaction. If not she will call. Otherwise we will see her back as needed. 30 minutes was spent in treatment patient more than half of this in [id number] conversation renee Not available 03/23/2023 10:47:59 Plan of Treatment Reminders Order Date Submit Date Provider Last Modified By Organization Details Last Modified Time Details Appointments None record ed. Lab None record ed. Referral None record ed. Procedures None record ed. Surgeries None record ed. Imaging XR, knee 023 03/23/20 23 [email or web address] [facility] [place], [address], [place], [address], 14:03:42 Medication Orders None record ed. Patient TargetsNo targets recorded. Patient InstructionsNo instructions recorded. Reason for Referral None Reported. Results Created Date Observation Date Name Description Value Unit Range Abnormal Flag Note LastModifiedBy Organization Detail LastModifiedTime 03/23/20 XR, knee No observ ation record ed. [email or web address] [facility] [place] [address], [place], [address], 03/23/2023 10:43:33 Result Notes None recorded. Problems Name Problem SNOMED Code Status Onset Date Resolution Date Notes Provider Name and Address Organization Details Recorded Time Dyspnea 126627883 Active Not Available [facility] 3 12:48:47 Abnormal vaginal bleeding 789719586 Active Not Available [facility] 3 12:48:48 Nausea 201837680 Active Not Available [facility] 3 12:48:48 Rhinitis 45038194 Active Not Available [facility] 3 12:48:48 Pain of right knee joint 09026318004097 0 Active 2022 Kandi Mehta RMA null, [place] [facility] 3 09:35:51 Pain of left knee joint 04834771256998 7 Active 2022 Kandi Green RMA null, [place] [facility] 3 09:36:03 Problem Notes None recorded. Procedures Surgical History Date Name Laterality Status Provider Name and Address Organization Details Recorded Time Hysterectomy completed DUSTIN Blevins MD - [facility] 03/23/2023 09:35:04 procedure on urinary bladder completed Kandi Mehta RMA [place] - [facility] 03/23/2023 09:35:19 Foot Surgery completed Kandi Mehta RM[facility]el[facility] 03/23/2023 09:35:26 Imaging Results Imaging Date Name Status LastModified by Organiz ation Details LastModified Time 03/23/2023 XR, knee completed [email or web address] [facility] [place] [address], [place], [address], 03/23/2023 10:43:33 Procedure Notes None recorded. Medical Equipment None Reported. Allergies Allergen ID Allergen Name Allergen Category Reaction Reaction Severity Criticality Documentation Date Start Date Code Code System Note Provider Name and Address Organization Details Recorded Time 05101 Substance with sulfonami de structure and antibacte rial mechanism of action (substanc e) medicatio n rash Not available Not available 06/09/2022 76695 8003 SNOMED Not Available [facility] 3 12:53:44 Medications Name Sig Start Date Stop Date Status Note LastModified by Organization Details LastModified Time cyclobenzap rine 10 mg tablet active Not Available Not Available Not Available clindamycin HCl 300 mg capsule active Not Available Not Available Not Available atorvastati n 10 mg tablet TAKE 1 TABLET BY MOUTH EVERY DAY AT BEDTIME active Not Available Not Available No t Available meloxicam 15 mg tablet 03/24 completed Not Available Not Available Not Available penicillin V potassium 500 mg tablet 03/24 completed Not Available Not Available Not Available amoxicillin 500 mg tablet TAKE 1 TABLET BY MOUTH THREE TIMES DAILY UNTIL ALL TAKEN 03/23 completed Not Available Not Available Not Available amoxicillin 875 mg tablet TAKE 1 TABLET BY MOUTH TWICE DAILY 03/23 completed Not Available Not Available Not Available oxycodone-a cetaminophe n 10 mg-325 mg tablet active Not Available Not Available No t Available benzonatate 100 mg capsule 03/23 completed Not Available Not Available Not Available diclofenac sodium 75 mg tablet,loren yed release active Not Available Not Available Not Available scopolamine 1 mg over 3 days transdermal patch APPLY 1 PATCH TOPICALLY TO THE SKIN EVERY 3 DAYS NEEDED FOR MOTION SICKNESS 03/23 completed Not Available Not Available Not Available methylpredn isolone 4 mg tablets in a dose pack active Not Available Not Available Not Available fluticasone propionate 50 mcg/actuati on nasal spray,suspe nsion Gibson 2 sprays every day by intranasa l route in the evening. active Not Available Not Available No t Available amoxicillin 875 mg-potassiu m clavulanate 125 mg tablet TAKE 1 TABLET BY MOUTH TWICE DAILY FOR 10 DAYS 03/23 completed Not Available Not Available Not Available Suprep Bowel Prep Kit 17.5 gram-3.13 gram-1.6 gram oral solution active Not Available Not Available Not Available Fluvirin 45 mcg (15 mcg x 3)/0.5 mL intramuscul ar suspension ADM 0.5ML IM UTD 03/24 completed Not Available Not Available Not Available Afluria Quad (PF) 60 mcg/0.5 mL intramuscul ar syringe 03/24 completed Not Available Not Available Not Available Vitals Date Recorded Body height Provider Name an d Address Organization Details Last Updated DateTime 03/23/2023 165.1 cm DUSTIN [facility]levins [place] [facility] 03/23/2023 09:53:21 Date Recorded Body mass index (BMI) Body weight Provider Name and Address Organization Details Last Updated DateTime 03/23/2023 35.4 kg/m2 21064.17 g DUSTIN Blevins [facility] 03/23/2023 09:53:23 Social History Question Answer Notes LastModified by Organizat ion Details LastModified Time Tobacco Smoking Status Never Smoker DUSTIN Blevins [facility], [facility] 03/23/2023 09:34:53 What Is Your Level Of Alcohol Consumption? 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 Mental Status None recorded. Family History Relationship Description Onset Age of this Age Resolved Age Notes LastModified by Organization Details LastModified Time Father Family history of malignant neoplasm [email or web address] Not available 2022 09:34:32 Paternal Uncle Diabetes mellitus [email or web address] Not available 2022 09:34:42 Medical History Condition Response BLINDNESS N KIDNEY STONES N CARPAL TUNNEL SYNDROME N MRSA N LUNG DISEASE/DISORDER N HISTORY OF DRUG ABUSE N RADIATION / CHEMOTHERAPY N COPD N SPORTS INJURY N ANKLE PAIN N BLOOD DISEASES N PAST SPINAL SURGERY N SCHIZOPHRENIA N SHINGLES N SHOULDER PAIN N BOWEL PROBLEMS N DEPRESSION (INCLUDING POST ) N FAILED BACK SYNDROME N STROKE/TIA N ULCERS N OTHER MODALITIES N KNEE PAIN N BENIGN PROSTATIC HYPERPLASIA N OBESITY N GERD/NAUSEA N ANEURYSM N URINARY/BLADDER/KIDNEY PROBLEMS N CORONARY ARTERY DISEASE (CAD) N Do you have Advance directive? N ADDICTION CONCERNS N USE OF BLOOD THINNERS N SKIN PROBLEMS N EMPHYSEMA N MUSCLE,JOINT OR BONE PROBLEMS N DVT N STOMACH ULCERS N BLOOD CLOTS N PAST HISTORY OF VEHICULAR ACCIDENT N USE OF NSAIDS N CONCUSSION OR SPINAL TRAUMA N ARTERIAL INSUFFICIENCY N NEUROPATHY N AIDS/HIV N FRACTURES N HYPERTENSION N ELBOW PAIN N TOURETTE'S N Metal allergy N ANXIETY DISORDER N BLOOD TRANSFUSION N ANEMIA/BLOOD DISORDER N BIPOLAR DISORDER N BRONCHITIS N OSTEOARTHRITIS N TUBERCULOSIS N FOOT PROBLEM N HEART VALVE DISORDERS N SLEEP APNEA N SOFT TISSUE INJURY N BACK INJECTIONS N ALLERGIES/HAYFEVER N INFECTIOUS DISEASE N HEART ARRHYTHMIA N ESRD N INSOMNIA N PAST INTERVENTIONAL PAIN MANAGEMENT HIST ORY N RHEUMATOID ARTHRITIS N HIGH CHOLESTEROL / HYPERLIPIDEMIA N PAST MEDICATION HISTORY N PVD N EDEMA N CHRONIC PAIN SYNDROME N CAROTID BLOCKAGE N BACK / NECK PROBLEMS N HAVE YOU BEEN HOSPITALIZED OR SEEN IN [facility] ER IN THE PAST YEAR ? N BURSITIS N HERNIATED DISC N DIALYSIS N POLYCYSTIC OVARIES N FIBROMYALGIA N OSTEOPOROSIS N ARTHRITIS N RESPIRATORY PROBLEMS N NO SIGNIFICANT PAST MEDICAL HISTORY N PAST HISTORY OF FALL N PERIPHERAL NEUROPATHY N DIABETES, TYPE N VON WILLIBRAND'S DISEASE N HEARTBURN / REFLUX N HEPATITIS / LIVER DISEASE N POST LAMINECTOMY SYNDROME N GOUT N SLEEP DISORDER N ALZHEIMER'S DISEASE N HERPES N SEIZURES/EPILEPSY N HEADACHES/MIGRAINES N VASCULAR DISEASE N Blood Disorder N HIP PAIN N DIZZINESS N HEAD TRAUMA OR INJURY N HEART DISEASE/HEART PROBLEMS N MULTIPLE SCLEROSIS N NEUROPSYCHOLOGICAL N CANCER: SPECIFY N CARDIAC ARRHYTHMIA N ANESTHESIA COMPLICATIONS N ATRIAL FIBRILLATION N AUTOIMMUNE DISEASE N Gynecological HistoryNo gynecological history recorded. Obstetrics History GPAL:G 0 P 0 0 0 0 Immunizations Vaccine Type Date Status Note Provider Nam e and Address Organization Details Recorded Time influenza, unspecified formulation 8 completed Not Available [facility] 06/09/2022 12:53:36 Influenza, split virus, quadrivalent, preservative 7 completed Not Available [facility] 06/09/2022 12:53:36 Tdap 7 completed Not Available [facility] 06/09/2022 12:53:36 Past Encounters Encounter ID Performer Location Encounter Start Date Encounter Closed Date Diagnosis/Indication Diagnosis SNOMED-CT Code Diagnosis ICD10 Code Diagnosis Note [id number] ANN Huertas [facility] [place] [address] [place] [address] 03/23/2023 08:57:41 03/23/2023 11:19:12 Pain of left knee joint 4246596900 87246 M25.562 Health Concerns Section Related Observation LastModified by Organization Detai ls LastModified Time None Recorded Concern Status LastModified by Organization Details LastModified Time None Recorded Advance Directives Directive None Recorded Payers Encounter Date Sequence Insurance Name Policy Number Policy Epperson Covered Member ID Epperson Member ID Guarantor Name 03/23/2023 1 [facility] [id number] Felisha Peterson [id number] Felisha Peterson OBGyn Episode No OBEpisode recorded.
--- OUTSIDE RECORDS SUMMARY | 2024-05-11 02:11 | XMS_ITS | Referral Summary ---
Author Organization [facility] [address] [facility] lto Address [address] [facility] [place] [address] Care Team Providers Care Armature Straightener Name Role Phone Holli Warren NP Primary Care Provider [phone] Allergies Active Allergy Reactions Criticality Noted Date [...] 12/18/2014 Dermatofibroma 02/27/2013 Benign neoplastic disease 02/27/2013 Social History Tobacco Use Types Packs/Day Years Used Date Smoking Tobacco: Never Smokeless Tobacco: Never Tobacco Cessation:Counseling Given: Not Answered Personal Safety Answer Date Recorded Getting School Help Needed Not on file 06/24 Comments Unknown Sex and Gender Information Value Date Recorded Sex Assigned at Not on file Legal Sex Female 12:45 PM RATE MARKER Gender Identity Not on file Sexual Orientation [...] 02/07/2023 11:34 AM CDT Plan of Treatment Not on file Insurance [facility] CHOICE PLUS [facility] HMO/PPO Address: [place] [address] [facility] HMO/PPO Address: [address] [address] [place] [phone] Care Teams Armature Straightener Relationship Specialty Start Date End Date Holli Warren NP PCP - General Family Medicine 11/19/21
--- OUTSIDE RECORDS SUMMARY | 2024-05-11 02:11 | XMS_ITS | Clinical Summary ---
Author Organization [facility] Address [address] [place] [address] Care Team Providers Care Calendar Control Clerk Blood Bank Name Role Phone Unavailable Primary Care Provider Unavailabl e Allergies Active Allergy Reactions Criticality Noted Date Comments Sulfa (Sulfonamide Antibiotics) Rash Low 03/11 Medications atorvastatin (LIPITOR) 10 mg tablet Take 10 mg by mouth daily. Active Active Problems No known active problems Encounters Date Type Department Care Team Description 05/03/2024 External Device Data [facility] Provider, Abstract 04/24/2024 External Device Data [facility] Provider, Abstract 02/14/2024 External Device Data [facility] Provider, Abstract from Last 3 Months Family History Medical History Relation Name Comments No Known Problems Daughter 1 No Known Problems Daughter 2 Cancer Father No Known Problems Mother Diabetes Sister No Known Problems Son Relation Name Status Comments Daughter 1 Alive Daughter 2 Alive Father Alive Mother Alive Sister Alive Son Alive Social History Tobacco Use Types Packs/Day Years Used Date Smoking Tobacco: Never Smokeless Tobacco: Never Tobacco Cessation:Counseling Given: Not Answered Alcohol Use Standard Drinks/Week Comments Yes 0 (1 standard drink = 0.6 oz pur e alcohol) Socially Comments Unknown Sex and Gender Information Value Date Recorded Sex Assigned at Not on file Legal Sex Female 10:40 AM CDT Gender Identity Not on file Sexual Orientation Not on file Last Filed Vital Signs Vital Sign Reading Time Taken Comments Blood Pressure 122/81 04/20/2023 1:45 PM FIELD MARKETING DIRECTOR Pulse 98 04/20/2023 1:45 PM FIELD MARKETING DIRECTOR Temperature 36.6 ??C (97.8 ??F) 04/20/2023 1:45 PM CS T Respiratory Rate 10 04/20/2023 1:45 PM FIELD MARKETING DIRECTOR Oxygen Saturation 95% 04/20/2023 1:45 PM FIELD MARKETING DIRECTOR Inhaled Oxygen Concentration - - Weight 98.4 kg (217 lb) 04/20/2023 1:45 PM FIELD MARKETING DIRECTOR Height 167.6 cm (5' 6 ) 03/22/2023 2:47 PM FIELD MARKETING DIRECTOR Body Mass Index 35.02 03/22/2023 2:47 PM FIELD MARKETING DIRECTOR Plan of Treatment Health Maintenance Due Date Last Done Comments Pre-Diabetes and Diabetes Screening 1969 DTAP/TDAP/TD VACCINES (1 - Tdap) 1988 HEPATITIS B VACCINES (1 of 3 - 19+ 3-dose series) 1988 CERVICAL CANCER SCREENING 11/01/1999 BREAST CANCER SCREENING 2009 COLORECTAL SCREENING 2014 Colorectal Cancer Screening 2014 FIT-DNA Q 3 years 2014 FIT/FOBT Q 1 year 2014 Flex Sig/CT Colonography Q 5 years 2014 ZOSTER VACCINE (1 of 2) 11/01/2019 INFLUENZA VACCINE (#1) 2023 PNEUMOCOCCAL VACCINE 0-64 YEARS Aged Out No longer eligible based on patient's age to complete this topic Insurance [facility] [id number] Member Subscriber Plan / Payer (Ef fective 2022-Present) Name:Felisha Peterson Relation to Subscriber:Self Name:Felisha Peterson Payer ID:[id number] (NAIC) Type:HMO Address: [facility] [id number] [place] [id number]
[2024-05-11 09:28] VITALS: BP 130/66; PULSE 100; RESP 20; TEMP 36.1; O2SAT 100; BMI 33.5
[2024-05-11] MEDS: LACTATED RINGERS 1,000 ML 150 ML IV CONT (09:36)
--- NOTE | 2024-05-11 10:01 | P.PNAN_ITS ---
Anes - Initial Pre Proc Eval Procedure: Operation Date: 05/11/24 10:30 Proposed Procedures p Colonoscopy - Tevin Anderson MD Date/Time: 05/11/24 10:01 Surgeon: Tevin Anderson MD Pre Op Diagnosis: hx of colon polyps Patient Data Age: 53 Gender: F Height: 1.65 m Weight: 91.6 kg Last Vital Signs Temp 36.1 C L 05/11/24 09:28 Pulse 100 05/11/24 09:28 Resp 20 05/11/24 09:28 BP 130/66 05/11/24 09:28 Pulse Ox 100 05/11/24 09:28 O2 Del Method Room Air 05/11/24 09:28 Allergies Allergy/AdvReac Type Severity Reaction Status Date / Time Sulfa (Sulfonamide Allergy Mild Rash Verified 05/11/24 09:26 Antibiotics) Home Medications ?Medication ?Instructions ?Recorded ?Confirmed ?Type simvastatin 10 mg tablet 10 mg PO DAILY #90 tabs 11/25/23 05/11/24 Rx phentermine 15 mg capsule 15 mg PO DAILY #30 caps 03/29/24 05/11/24 Rx Patient hx anesthesia problems: none Family hx anesthesia problems: none Results Review: All pre-operative results and documents have been reviewed as part of the pre- operative evaluation. PENDING SALE TO [facility] Past Medical History Medical History Vitamin D deficiency Obesity Headache, migraine, intractable Irritable bowel syndrome with diarrhea Surgical History Surgical History History of sacrocolpopexy (~07/2020) History of bladder suspension procedure (~03/2018) History of foot surgery 1982, 2012 H/O: hysterectomy (~03/2018) Family History Family History Mother Hypertension Family history of elevated blood lipids Other H/O: hysterectomy Social History Social History Social History: Felisha is . She works for [employer]. Smoking status: Never smoker Second hand tobacco smoke exposure: No Alcohol intake: current Alcohol use details: STATES DRINKS VERY RARELY, 2/MONTH IF THAT Substance use: never Substance use type: does not use Do You Feel Safe in your Home?: Yes Lack of Transportation: No Lack of Food: Never True Current Housing: I Have Housing Concerned About Future Housing: No Difficulty Paying Gas/Electric Bills: No Difficulty Paying for Meds: No Currently Unemployed: No Education: High School Diploma/GED Difficulty w/ Childcare or Family Care: No Living arrangements: with family Occupation/Education: occupation Gender identity (if verbalized by the patient): Female Sexual Orientation (if Verbalized by the Patient): Straight or Heterosexual Spiritual care concerns: No Agree to blood products: Yes Anes - Eval Final PreProcedure Day of Procedure 05/11/24 10:01 Patient weight: obese Heart: regular rate and rhythm Lungs: clear to auscultation Airway: Mallampati scale class II Neurological: alert and oriented Last oral intake: >/= 8 hours ASA classification: II Emergent: no Anesthetic plan: proceed Anesthesia type and monitoring: general GIVS and standard monitoring Results Review: All pre-operative results and documents have been reviewed as part of the pre- operative evaluation. Informed Consent: The patient's anesthetic plan and its attendant risks and benefits were discussed with the patient/family/POA. Questions were solicited and answers provided to the satisfaction of the patient/family/POA.
--- NOTE | 2024-05-11 10:40 | PM.HPGS ---
History of Present Illness History of Present Illness Consent: Risks, benefits, and alternatives have been discussed and questions answered. Patient agrees to proceed with procedure. Chief complaint: hx of colon polyps Narrative: Felisha Peterson is a 53 year old female with last colonoscopy 2018, father had colon cancer Review of Systems Review of Systems: All systems reviewed & are unremarkable except as noted in HPI and below PMFSH Past Medical History Medical History (Updated 05/11/24 @ 10:40 by Tevin Anderson MD) Family history of colon cancer in father Vitamin D deficiency Obesity Headache, migraine, intractable Irritable bowel syndrome with diarrhea Surgical History Surgical History History of sacrocolpopexy (~07/2020) History of bladder suspension procedure (~03/2018) History of foot surgery 2012 H/O: hysterectomy (~03/2018) Family History Family History Mother Hypertension Family history of elevated blood lipids Other H/O: hysterectomy Social History Social History Social History: Felisha is . She works for [employer]. Smoking status: Never smoker Second hand tobacco smoke exposure: No Alcohol intake: current Alcohol use details: STATES DRINKS VERY RARELY, 2/MONTH IF THAT Substance use: never Substance use type: does not use Do You Feel Safe in your Home?: Yes Lack of Transportation: No Lack of Food: Never True Current Housing: I Have Housing Concerned About Future Housing: No Difficulty Paying Gas/Electric Bills: No Difficulty Paying for Meds: No Currently Unemployed: No Education: High School Diploma/GED Difficulty w/ Childcare or Family Care: No Living arrangements: with family Occupation/Education: occupation Gender identity (if verbalized by the patient): Female Sexual Orientation (if Verbalized by the Patient): Straight or Heterosexual Spiritual care concerns: No Agree to blood products: Yes Meds Home Medications and Allergies Home Medications ?Medication ?Instructions ?Recorded ?Confirmed ?Type simvastatin 10 mg tablet 10 mg PO DAILY #90 tabs 11/25/23 05/11/24 Rx phentermine 15 mg capsule 15 mg PO DAILY #30 caps 03/29/24 05/11/24 Rx Allergies Allergy/AdvReac Type Severity Reaction Status Date / Time Sulfa (Sulfonamide Allergy Mild Rash Verified 05/11/24 09:26 Antibiotics) Vital Signs Vital Signs - 24 hr 05/11/24 09:28 Temperature 97 F L Pulse Rate 100 Respiratory Rate 20 Blood Pressure 130/66 Pulse Oximetry 100 Oxygen Delivery Room Air Exam Const: General: comfortable and no acute distress HENMT: Face/Nose/Sinus: Normal nares present Eyes: General: appearance normal, both eyes and all related structures Neck: Neck: no JVD Resp: Auscultation: clear to auscultation bilaterally Cardio: Rate: regular rate Rhythm: regular rhythm GI: Inspection: non-distended GI Palp: Yes Soft to palpation Skin: General skin exam: normal color Neuro: General: gait normal Speech: normal speech Extrem: General: normal to inspection Psych: Mental Status: mental status grossly normal Assessment and Plan Assessment and plan (1) Family history of colon cancer in father: Code(s): Z80.0 - Family history of malignant neoplasm of digestive organs Status: Acute Assessment and Plan: colonoscopy
[2024-05-11 11:06] VITALS: BP 129/73; PULSE 98; RESP 18; O2SAT 99
[2024-05-11 11:16] VITALS: BP 130/67; PULSE 89; RESP 16; O2SAT 99
[2024-05-11 11:26] VITALS: BP 132/64; PULSE 77; RESP 16; O2SAT 100
== END 2024-05-11 11:34 | disposition home or self-care (01) ==
PROVIDERS: PCP Student in an Organized Health Care Education/Training Program; Referring Provider Nurse Practitioner Family; Visit Provider Internal Medicine Gastroenterology
PROC: 0DJD8ZZ Inspection of Lower Intestinal Tract, Via Natural or Artificial Opening Endoscopic (ICD-10-PCS; CPT 45378; principal; 2024-05-11 10:30)
DX: Z12.11 Encounter for screening for malignant neoplasm of colon (principal); K62.1 Rectal polyp; K64.8 Other hemorrhoids; E55.9 Vitamin D deficiency, unspecified; K58.0 Irritable bowel syndrome with diarrhea; E66.9 Obesity, unspecified; Z68.33 Body mass index [BMI] 33.0-33.9, adult; Z98.890 Other specified postprocedural states; Z80.0 Family history of malignant neoplasm of digestive organs
CPT/HCPCS: 45385; 88305; J2003; J2704; J7120